=== PATIENT | female | born 1960 | race Caucasian/White ===

== ENCOUNTER 2018-05-30 11:43 | Inpatient (IN) | payer MEDICAID ==
[~2018-05-30] VITALS: Ht 162.6 cm; Wt 77.3 kg
[2018-05-30 12:22] LABS: BASOPHILS % (AUTO) 0.6 % (0-1); EOSINOPHILS # (AUTO) 0.1 X10'3 (0-0.9); HEMATOCRIT 38.8 % (35.0-45.0); HEMOGLOBIN 13.1 g/dl (12.0-16.0); LYMPHOCYTES # (AUTO) 1.2 X10'3 (1.1-4.8); LYMPHOCYTES % (AUTO) 24.1 % (21-51); MEAN CORPUSCULAR HGB CONC 33.8 % (33.0-36.5); MEAN CORPUSCULAR VOLUME 103.8 FL (78-98); MEAN PLATELET VOLUME 7.6 FL (7.4-10.4); MONOCYTES # (AUTO) 0.2 X10'3 (0-0.9); MONOCYTES % (AUTO) 4.6 % (2-12); NEUTROPHILS # (AUTO) 3.5 X10'3 (1.8-7.7); NEUTROPHILS % (AUTO) 68.7 % (42-75); PLATELET COUNT 313 X10'3 (140-440); RED BLOOD COUNT 3.74 X10'6 (4.20-5.60); RED CELL DISTRIBUTION WIDTH 13.8 % (11.5-14.5); WHITE BLOOD COUNT 5.1 X10'3 (4.5-11.0)
[2018-05-30 12:44] LABS: PARTIAL THROMBOPLASTIN TIME 27 SECONDS (22-32)
[2018-05-30 12:54] LABS: ALANINE AMINOTRANSFERASE 24 U/L (12-78); ALBUMIN 3.8 G/DL (3.4-5.0); ALBUMIN/GLOBULIN RATIO 1.1 (1.1-1.5); ALKALINE PHOSPHATASE 94 IU/L (46-116); ANION GAP 9 (8-16); ASPARTATE AMINO TRANSFERASE 23 U/L (10-37); BILIRUBIN,TOTAL 0.4 MG/DL (0.1-1.0); BLOOD UREA NITROGEN 12 MG/DL (7-18); BUN/CREATININE RATIO 19.4 (6.6-38.0); CALCIUM 9.2 MG/DL (8.5-10.1); CHLORIDE 105 MMOL/L (99-107); CREATININE 0.62 MG/DL (0.40-0.90); GLUCOSE 90 MG/DL (70-104); POTASSIUM 3.9 MMOL/L (3.5-5.1); SODIUM 141 MMOL/L (135-145); TOTAL CARBON DIOXIDE 26.6 MMOL/L (24-32); TOTAL PROTEIN 7.3 G/DL (6.4-8.2); TROPONIN I < 0.04 NG/ML (0.0-0.05); eGFR > 90 ML/MIN
[2018-05-30] MEDS ORDERED: aspirin 325mg tablet PO ONE (14:20)
[2018-05-30] MEDS ORDERED: potassium Cl 20 mEq SR tablet PO PRN ×2 (15:00)
[2018-05-30] MEDS ORDERED: potassium Cl 40MEQ/NS 500ml 500 ML IV PRN ×2 (15:00)
[2018-05-30] MEDS ORDERED: magnesium Cl slow-release 64mg tablet PO PRN (15:00)
[2018-05-30] MEDS ORDERED: magnesium 4gm in 100ml NS 100 ML IV PRN (15:00)
[2018-05-30] MEDS ORDERED: mag hydrox/Alum hydrox/simeth 30ml oral suspension PO PRN (15:00)
[2018-05-30] MEDS ORDERED: ondansetron/PF 4mg/2ml inj IV PRN (15:00)
[2018-05-30] MEDS ORDERED: acetaminophen 325mg tablet PO PRN ×2 (15:00)
[2018-05-30] MEDS ORDERED: magnesium hydroxide 30ml (MOM) UD suspension PO PRN (15:00)
[2018-05-30 16:32] LABS: CHOLESTEROL 291 MG/DL (0-200); HDL CHOLESTEROL 96 MG/DL (35-60); LDL CHOLESTEROL 177 MG/DL (50-100); TRIGLYCERIDES 88 MG/DL (20-135)
[2018-05-30 16:43] LABS: HEMOGLOBIN A1C 5.3 % (4.5-6.2)
[2018-05-30] MEDS ORDERED: ASPI-1265 PO (16:46)
[2018-05-30] MEDS ORDERED: atorvastatin 20mg tablet PO SCH (21:00)
[2018-05-31] MEDS ORDERED: K and/or MAG REPLACEMENT MC SCH (08:00)
[2018-05-31] MEDS ORDERED: aspirin 325mg tablet, delayed-release (Ecotrin) PO SCH (08:00)
[2018-05-31] MEDS ORDERED: enoxaparin 40mg/0.4ml syringe SQ SCH (08:00)
[2018-05-31 08:10] LABS: BASOPHILS # (AUTO) 0.1 X10'3 (0-0.2); BASOPHILS % (AUTO) 1.1 % (0-1); EOSINOPHILS # (AUTO) 0.1 X10'3 (0-0.9); EOSINOPHILS % (AUTO) 2.6 % (0-6); HEMATOCRIT 37.5 % (35.0-45.0); HEMOGLOBIN 12.6 g/dl (12.0-16.0); LYMPHOCYTES # (AUTO) 1.3 X10'3 (1.1-4.8); LYMPHOCYTES % (AUTO) 24.1 % (21-51); MEAN CORPUSCULAR HEMOGLOBIN 35.1 PG (27.0-31.0); MEAN CORPUSCULAR HGB CONC 33.7 % (33.0-36.5); MEAN PLATELET VOLUME 7.5 FL (7.4-10.4); MONOCYTES # (AUTO) 0.3 X10'3 (0-0.9); MONOCYTES % (AUTO) 5.7 % (2-12); NEUTROPHILS # (AUTO) 3.5 X10'3 (1.8-7.7); NEUTROPHILS % (AUTO) 66.5 % (42-75); PLATELET COUNT 300 X10'3 (140-440); RED CELL DISTRIBUTION WIDTH 14.2 % (11.5-14.5); WHITE BLOOD COUNT 5.3 X10'3 (4.5-11.0)
[2018-05-31 08:22] LABS: ALBUMIN 3.3 G/DL (3.4-5.0); ANION GAP 9 (8-16); BLOOD UREA NITROGEN 15 MG/DL (7-18); BUN/CREATININE RATIO 23.1 (6.6-38.0); CALCIUM 9.1 MG/DL (8.5-10.1); CHLORIDE 105 MMOL/L (99-107); CREATININE 0.65 MG/DL (0.40-0.90); GLUCOSE 97 MG/DL (70-104); MAGNESIUM 2.2 MG/DL (1.5-2.4); SODIUM 141 MMOL/L (135-145); TOTAL CARBON DIOXIDE 26.9 MMOL/L (24-32); eGFR > 90 ML/MIN
[2018-05-31] MEDS ORDERED: iohexol 350MG/ML 100ml bottle IV ONE (10:08)
[2018-05-31 11:39] LABS: RHEUM FACTOR QUAL REFLEX TITER NEGATIVE (Neg)
[2018-05-31 12:30] VITALS: BP 125/63
[2018-05-31] MEDS ORDERED: ATOR20TA66 PO (15:00)
[2018-05-31] MEDS ORDERED: ASPI-41 PO (15:00)
[2018-05-31] MEDS ORDERED: atorvastatin 20mg tablet PO SCH (21:00)
== END 2018-05-31 16:00 | disposition home or self-care (01) | DRG 54 ==
LOC: ER 11:44 → ED HOLD 14:58 → ORTHO 4S 05-31 12:28
PROVIDERS: ADMIT Hospitalist; ATTEND Family Medicine
PROC: B3251ZZ Computerized Tomography (CT Scan) of Bilateral Common Carotid Arteries using Low Osmolar Contrast (ICD-10-PCS; principal; 2018-05-31)
PROC: B32G1ZZ Computerized Tomography (CT Scan) of Bilateral Vertebral Arteries using Low Osmolar Contrast (ICD-10-PCS; 2018-05-31)
PROC: B3201ZZ Computerized Tomography (CT Scan) of Thoracic Aorta using Low Osmolar Contrast (ICD-10-PCS; 2018-05-31)
PROC: B3281ZZ Computerized Tomography (CT Scan) of Bilateral Internal Carotid Arteries using Low Osmolar Contrast (ICD-10-PCS; 2018-05-31)
DX: G43.909 Migraine, unspecified, not intractable, without status migrainosus (principal); G45.9 Transient cerebral ischemic attack, unspecified; E78.00 Pure hypercholesterolemia, unspecified; E78.5 Hyperlipidemia, unspecified; Z60.2 Problems related to living alone; Z79.899 Other long term (current) drug therapy; Z79.82 Long term (current) use of aspirin; Z87.891 Personal history of nicotine dependence
CPT/HCPCS: 36415; 70450; 70496; 70498; 70551; 71045; 80048; 80053; 80061; 82948; 83036; 83735; 84484; 84550; 85025; 85610; 85651; 85730; 86038; 86140; 86430; 93005; 93306; 93880; 99285; G0378; J1650; Q9967

== ENCOUNTER 2019-11-04 14:46 | Emergency (ER) | payer MEDICAID, OTHER ==
[~2019-11-04] VITALS: Ht 162.6 cm; Wt 70.5 kg
[~2019-11-04 14:46] MED LIST: ASPI-41 PO; ATOR20TA66 PO
[2019-11-04 15:47] LABS: BASOPHILS % (AUTO) 0.7 % (0-1); EOSINOPHILS # (AUTO) 0.1 X10'3 (0-0.9); EOSINOPHILS % (AUTO) 1.3 % (0-6); HEMATOCRIT 42.8 % (35.0-45.0); HEMOGLOBIN 14.3 g/dl (12.0-16.0); LYMPHOCYTES # (AUTO) 1.2 X10'3 (1.1-4.8); LYMPHOCYTES % (AUTO) 18.1 % (21-51); MEAN CORPUSCULAR HEMOGLOBIN 35.1 PG (27.0-31.0); MEAN CORPUSCULAR HGB CONC 33.4 g/dL (33.0-36.5); MEAN PLATELET VOLUME 7.6 FL (7.4-10.4); MONOCYTES # (AUTO) 0.4 X10'3 (0-0.9); NEUTROPHILS # (AUTO) 4.7 X10'3 (1.8-7.7); NEUTROPHILS % (AUTO) 73.9 % (42-75); PLATELET COUNT 284 X10'3 (140-440); RED BLOOD COUNT 4.08 X10'6 (4.20-5.60); RED CELL DISTRIBUTION WIDTH 13.9 % (11.5-14.5); WHITE BLOOD COUNT 6.4 X10'3 (4.5-11.0)
[2019-11-04 15:58] LABS: ALANINE AMINOTRANSFERASE 113 U/L (12-78); ALBUMIN 3.5 G/DL (3.4-5.0); ALBUMIN/GLOBULIN RATIO 0.9 (1.1-1.5); ALKALINE PHOSPHATASE 126 IU/L (46-116); ANION GAP 9 (8-16); ASPARTATE AMINO TRANSFERASE 95 U/L (10-37); BILIRUBIN,TOTAL 0.4 MG/DL (0.1-1.0); BLOOD UREA NITROGEN 22 MG/DL (7-18); BUN/CREATININE RATIO 26.2 (6.6-38.0); CALCIUM 9.1 MG/DL (8.5-10.1); CHLORIDE 103 MMOL/L (99-107); CREATININE 0.84 MG/DL (0.40-0.90); GLUCOSE 98 MG/DL (70-104); SODIUM 136 MMOL/L (135-145); TOTAL CARBON DIOXIDE 23.6 MMOL/L (24-32); TOTAL PROTEIN 7.3 G/DL (6.4-8.2); eGFR 69 ML/MIN
[2019-11-04 16:16] LABS: PARTIAL THROMBOPLASTIN TIME 26 SECONDS (22-32)
[2019-11-04 18:44] LABS: D-DIMER 0.37 MG/L FEU (0-0.50)
--- NOTE | 2019-11-04 20:02 | NUR ---
MARY, INTELLIGENCE SENIOR SERGEANT, INFORMED RN THAT VASCULAR HAS BEEN PAGED.
[2019-11-04] MEDS ORDERED: NAPR-56 PO (20:50)
[2019-11-04 21:22] VITALS: BP 133/85
== END 2019-11-04 21:42 | disposition home or self-care (01) ==
LOC: ER 14:46
DX: S93.602A Unspecified sprain of left foot, initial encounter (principal); R42 Dizziness and giddiness; Z60.2 Problems related to living alone; Z79.82 Long term (current) use of aspirin; Z79.899 Other long term (current) drug therapy; X58.XXXA Exposure to other specified factors, initial encounter; Y93.89 Activity, other specified; Y92.89 Other specified places as the place of occurrence of the external cause; Y99.8 Other external cause status
CPT/HCPCS: 36415; 71045; 73630; 80053; 83880; 84484; 85025; 85379; 85610; 85730; 93005; 93971; 99285

== ENCOUNTER → 2021-06-02 | Emergency (ER) | payer OTHER ==
[~2021-06-02] VITALS: Ht 165.1 cm; Wt 72.7 kg
[~2021-06-02] MED LIST changes: +LORazepam 1 MG tablet PO ONE
[2021-06-02 09:31] LABS: ALANINE AMINOTRANSFERASE 118 U/L (12-78); ALBUMIN 3.4 G/DL (3.4-5.0); ALBUMIN/GLOBULIN RATIO 0.8 (1.1-1.5); ALKALINE PHOSPHATASE 143 IU/L (46-116); ANION GAP 11 (8-16); ASPARTATE AMINO TRANSFERASE 128 U/L (10-37); BILIRUBIN,TOTAL 0.4 MG/DL (0.1-1.0); BLOOD UREA NITROGEN 14 MG/DL (7-18); BUN/CREATININE RATIO 18.9 (6.6-38.0); CALCIUM 8.7 MG/DL (8.5-10.1); CHLORIDE 105 MMOL/L (99-107); CREATININE 0.74 MG/DL (0.40-0.90); GLUCOSE 108 MG/DL (70-104); SODIUM 139 MMOL/L (135-145); TOTAL CARBON DIOXIDE 22.7 MMOL/L (24-32); TOTAL PROTEIN 7.5 G/DL (6.4-8.2); eGFR 80 ML/MIN
[2021-06-02 09:33] LABS: POTASSIUM 4.1 MMOL/L (3.5-5.1)
[2021-06-02 09:44] VITALS: BP 138/88
[2021-06-02 09:46] LABS: BASOPHILS # (AUTO) 0.1 X10'3 (0-0.2); BASOPHILS % (AUTO) 0.9 % (0-1); EOSINOPHILS # (AUTO) 0.1 X10'3 (0-0.9); HEMATOCRIT 44.2 % (35.0-45.0); HEMOGLOBIN 15.5 g/dl (12.0-16.0); LYMPHOCYTES # (AUTO) 1.2 X10'3 (1.1-4.8); LYMPHOCYTES % (AUTO) 18.3 % (21-51); MEAN CORPUSCULAR HEMOGLOBIN 36.4 PG (27.0-31.0); MEAN CORPUSCULAR HGB CONC 35.1 g/dL (33.0-36.5); MEAN CORPUSCULAR VOLUME 103.8 FL (78-98); MONOCYTES # (AUTO) 0.3 X10'3 (0-0.9); MONOCYTES % (AUTO) 4.5 % (2-12); NEUTROPHILS # (AUTO) 4.8 X10'3 (1.8-7.7); NEUTROPHILS % (AUTO) 75.3 % (42-75); PLATELET COUNT 311 X10'3 (140-440); RED BLOOD COUNT 4.26 X10'6 (4.20-5.60); RED CELL DISTRIBUTION WIDTH 15.8 % (11.5-14.5); WHITE BLOOD COUNT 6.4 X10'3 (4.5-11.0)
--- NOTE | 2021-06-02 09:46 | NUR ---
dr heller at bedside.
== END | disposition home or self-care (01) ==
LOC: ER 08:43
DX: F41.9 Anxiety disorder, unspecified (principal); I10 Essential (primary) hypertension; R00.0 Tachycardia, unspecified; R74.02 Elevation of levels of lactic acid dehydrogenase [LDH]; D75.89 Other specified diseases of blood and blood-forming organs; R07.89 Other chest pain; F17.200 Nicotine dependence, unspecified, uncomplicated; Z72.89 Other problems related to lifestyle; Z60.2 Problems related to living alone; Z79.82 Long term (current) use of aspirin; Z79.899 Other long term (current) drug therapy
CPT/HCPCS: 36415; 80053; 85025; 93005; 99284